=== PATIENT | female | born 1940 | race Caucasian/White ===

== ENCOUNTER 2018-09-15 08:51 | Inpatient (IN) ==
[2018-09-15] MEDS ORDERED: ONDANSETRON 4 MG/2 ML VIAL ONE ×2 (09:08→20:38)
[2018-09-15] MEDS ORDERED: ONDANSETRON 4 MG/2 ML VIAL IV STA (09:15)
[2018-09-15] MEDS ORDERED: SODIUM CHLORIDE 0.9% 1,000 ML IV STA (09:35)
[2018-09-15 09:48] LABS: Basophils # 0.1 10*3/uL (0.0-0.2); Eosinophils # 0.1 10*3/uL (0.0-0.87); Eosinophils % 0.6 % (0.00-10.9); Hematocrit 45.9 VOL% (35.7-47.0); Immature Granulocytes % 0.6 %; Immature Granulocytes Absolute 0.08 #; Lymphocytes # 1.5 10*3/uL (1.4-4.0); Lymphocytes % 10.6 % (21.3-54.2); Mean Corpuscular HGB Conc 30.5 GM/DL (32-36); Mean Corpuscular Hemoglobin 25 PG (27-34); Mean Corpuscular Volume 81.7 FL (87-102); Mean Platelet Volume 10.8 FL (9.6-12.0); Monocytes # 0.8 10*3/uL (0.11-0.8); Monocytes % 5.6 % (1.7-12.7); Neutrophils # 11.4 10*3/uL (1.4-7.4); Neutrophils % 81.6 % (38.7-73.9); Platelet Count 750 T/CUMM (130-400); Red Blood Count 5.62 MC/CUMM (3.8-5.5); Red Cell Distribution Width 15.9 % (9.3-17.3)
[2018-09-15 09:54] LABS: PT Patient Result 10.7 SECS; Partial Thromboplastin Time 29.4 SECS (0-40)
[2018-09-15 09:59] LABS: Alanine Aminotransferase 22 U/L (13-56); Albumin 3.5 G/DL (3.4-5.0); Alkaline Phosphatase 126 U/L (45-117); Aspartate Amino Transferase 30 U/L (0-37); Bilirubin,Total < 0.39 MG/DL (0.2-1.0); Blood Urea Nitrogen 20 MG/DL (7-18); Glucose 118 MG/DL (74-106); Osmolality,Calculated 282.4 MOS/KG (273-304); Sodium 140 MMOL/L (136-145); Total Protein 8.4 G/DL (6.4-8.3)
[2018-09-15 10:02] LABS: Troponin I 0.252 NG/ML (0.00-0.045)
[2018-09-15 10:04] LABS: Free T4 (Free Thyroxine) 1.02 NG/DL (0.76-1.46); Thyroid Stimulating Hormone 3.06 uIU/ml (0.358-3.74)
[2018-09-15 10:58] LABS: Apearance,Urine CLEAR (Clear); Bilirubin,Urine Negative (Negative); Blood, Urine Negative (Negative); Glucose,Urine (UA) Negative (Negative); Hyaline Casts,Urine 4 /LPF (0-3); Ketones,Urine Negative (Negative); Mucus,Urine Occasional /LPF (Occasional); Nitrite,Urine Negative (Negative); Protein,Urine 30 MG/DL; RBC,Urine <1 /HPF (0-4); Squamous Epithelial Cell,Urine Occasional /HPF (0-10); Urine Color Yellow (Yellow); Urine Specific Gravity 1.015 (1.001-1.035); WBC,Urine 1 /HPF (0-6)
[2018-09-15 11:44] LABS: Barbiturates Screen,Urine Positive (Negative); Benzodiazepines Screen,Urine Negative (Negative); Cannabinoid Screen,Urine Negative (Negative); Opiate Screen,Urine Negative (Negative); Phencyclidine Screen,Urine Negative (Negative)
[2018-09-15] MEDS ORDERED: ACETAMINOPHEN 325 MG TABLET PO PRN (13:25)
[2018-09-15] MEDS: SODIUM CHLORIDE 0.9% 1,000 ML IV SCH ×2 (13:44→21:58)
[2018-09-15] MEDS ORDERED: ALTEPLASE 2 MG VIAL INTRACATH ONE ×2 (18:58→19:01)
[2018-09-15] MEDS ORDERED: ALTEPLASE 6 MG in SODIUM CHLORIDE 0.9% 120 ML IV SCH ×2 (19:15→19:30)
[2018-09-15] MEDS ORDERED: HEPARIN/NACL 0.9% 2 UNITS/ML 500 ML IV ONE ×2 (19:21→19:46)
[2018-09-15] MEDS ORDERED: LIDOCAINE 1% 20 ML VIAL ONE (19:21)
[2018-09-15] MEDS ORDERED: MIDAZOLAM 2 MG/2 ML VIAL ONE (19:25)
[2018-09-15 19:35] LABS: Troponin I 0.604 NG/ML (0.00-0.045)
[2018-09-15] MEDS ORDERED: ONDANSETRON 4 MG/2 ML VIAL IV ONE (20:40)
[2018-09-15] MEDS ORDERED: oxyCODONE/ACETAMINOPHEN 5-325 MG TABLET PO PRN (20:50)
[2018-09-15] MEDS ORDERED: MORPHINE 4 MG/1 ML VIAL IV PRN (20:50)
[2018-09-15] MEDS ORDERED: PROPRANOLOL 10 MG TABLET PO SCH (21:00)
[2018-09-15] MEDS ORDERED: SODIUM CHLORIDE 0.9% 1,000 ML IV SCH ×2 (21:00)
[2018-09-15] MEDS ORDERED: HEPARIN DRIP 25,000 UNITS/500 ML PREMIX IV SCH ×2 (21:00)
[2018-09-15 21:26] LABS: PT Patient Result 10.9 SECS; Partial Thromboplastin Time 29.4 SECS (0-40)
[2018-09-15] MEDS ORDERED: NOREPINEPHRINE 8 MG in SODIUM CHLORIDE 0.9% 242 ML IV PRN (21:47)
[2018-09-15] MEDS: PRIMIDONE 50 MG TABLET PO SCH (21:57)
[2018-09-15] MEDS: DOCUSATE SODIUM 100 MG CAPSULE PO SCH (21:57)
[2018-09-15 22:03] LABS: Basophils # 0.1 10*3/uL (0.0-0.2); Basophils % 0.6 % (0.0-0.8); Eosinophils % 0.1 % (0.00-10.9); Hematocrit 40.1 VOL% (35.7-47.0); Hemoglobin 12.3 GM/DL (12.0-16.0); Immature Granulocytes % 0.5 %; Immature Granulocytes Absolute 0.08 #; Lymphocytes # 1.6 10*3/uL (1.4-4.0); Lymphocytes % 10.5 % (21.3-54.2); Mean Corpuscular HGB Conc 30.7 GM/DL (32-36); Mean Corpuscular Hemoglobin 25 PG (27-34); Mean Corpuscular Volume 80.5 FL (87-102); Mean Platelet Volume 10.7 FL (9.6-12.0); Monocytes # 0.9 10*3/uL (0.11-0.8); Neutrophils # 12.7 10*3/uL (1.4-7.4); Neutrophils % 82.3 % (38.7-73.9); Red Blood Count 4.98 MC/CUMM (3.8-5.5); Red Cell Distribution Width 15.9 % (9.3-17.3); White Blood Count 15.4 T/CUMM (4-12)
[2018-09-15] MEDS: cefTRIAXone 500 MG in SYRINGE 1 EACH IV SCH (22:04)
[2018-09-15 22:08] LABS: Platelet Count 584 T/CUMM (130-400)
[2018-09-15 23:55] LABS: Apearance,Urine CLEAR (Clear); Bilirubin,Urine Negative (Negative); Blood, Urine Negative (Negative); Glucose,Urine (UA) Negative (Negative); Ketones,Urine Negative (Negative); Mucus,Urine Occasional /LPF (Occasional); Nitrite,Urine Negative (Negative); Protein,Urine Negative; RBC,Urine 2 /HPF (0-4); Squamous Epithelial Cell,Urine Occasional /HPF (0-10); Urine Color Yellow (Yellow); Urine Specific Gravity > 1.060 (1.001-1.035); WBC,Urine 2 /HPF (0-6)
[2018-09-16 04:46] LABS: Basophils # 0.1 10*3/uL (0.0-0.2); Basophils % 0.6 % (0.0-0.8); Eosinophils % 0.1 % (0.00-10.9); Hematocrit 39.3 VOL% (35.7-47.0); Immature Granulocytes % 0.8 %; Immature Granulocytes Absolute 0.11 #; Lymphocytes % 15.7 % (21.3-54.2); Mean Corpuscular HGB Conc 30.5 GM/DL (32-36); Mean Corpuscular Hemoglobin 25 PG (27-34); Mean Corpuscular Volume 81.9 FL (87-102); Monocytes % 7.3 % (1.7-12.7); Neutrophils # 9.8 10*3/uL (1.4-7.4); Neutrophils % 75.5 % (38.7-73.9); Platelet Count 550 T/CUMM (130-400); Red Cell Distribution Width 15.9 % (9.3-17.3)
[2018-09-16 04:46] LABS: INR 1.1; PT Patient Result 11.2 SECS
[2018-09-16 05:37] LABS: Albumin 2.7 G/DL (3.4-5.0); Bilirubin,Total 0.4 MG/DL (0.2-1.0); Calcium 7.8 MG/DL (8.5-10.1); Osmolality,Calculated 294.4 MOS/KG (273-304); Potassium 4.1 MMOL/L (3.5-5.1); Total Protein 6.3 G/DL (6.4-8.3)
[2018-09-16] MEDS: SODIUM CHLORIDE 0.9% 1,000 ML IV SCH ×5 (06:05→22:23)
[2018-09-16] MEDS: LEVOTHYROXINE 75 MCG TABLET PO SCH (06:05)
[2018-09-16 07:16] LABS: Troponin I 0.548 NG/ML (0.00-0.045)
[2018-09-16 07:18] LABS: Troponin I 0.406 NG/ML (0.00-0.045)
[2018-09-16 09:08] LABS: Partial Thromboplastin Time 48.3 SECS (0-40)
[2018-09-16] MEDS: DOCUSATE SODIUM 100 MG CAPSULE PO SCH ×2 (09:28→21:01)
[2018-09-16] MEDS: PANTOPRAZOLE 40 MG TABLET PO SCH (09:28)
[2018-09-16] MEDS: APIXABAN 5 MG TABLET PO SCH ×2 (15:10→21:02)
[2018-09-16] MEDS ORDERED: DIAZEPAM 5 MG TABLET PO ONE (15:12)
[2018-09-16] MEDS: PRIMIDONE 50 MG TABLET PO SCH (21:02)
[2018-09-16] MEDS: cefTRIAXone 500 MG in SYRINGE 1 EACH IV SCH (21:04)
[2018-09-17] MEDS: SODIUM CHLORIDE 0.9% 1,000 ML IV SCH ×5 (01:48→22:25)
[2018-09-17 05:39] LABS: Basophils # 0.1 10*3/uL (0.0-0.2)
[2018-09-17 05:44] LABS: Eosinophils # 0.1 10*3/uL (0.0-0.87); Hematocrit 36.8 VOL% (35.7-47.0); Hemoglobin 11.3 GM/DL (12.0-16.0); Immature Granulocytes % 0.7 %; Immature Granulocytes Absolute 0.08 #; Mean Corpuscular HGB Conc 30.7 GM/DL (32-36); Mean Corpuscular Hemoglobin 25 PG (27-34); Mean Corpuscular Volume 82.3 FL (87-102); Mean Platelet Volume 10.8 FL (9.6-12.0); Monocytes % 8.3 % (1.7-12.7); Neutrophils # 8.4 10*3/uL (1.4-7.4); Platelet Count 452 T/CUMM (130-400); Red Blood Count 4.47 MC/CUMM (3.8-5.5); Red Cell Distribution Width 16.3 % (9.3-17.3); White Blood Count 11.6 T/CUMM (4-12)
[2018-09-17 05:52] LABS: Calcium 7.9 MG/DL (8.5-10.1); Osmolality,Calculated 285.8 MOS/KG (273-304); Potassium 3.9 MMOL/L (3.5-5.1)
[2018-09-17] MEDS: LEVOTHYROXINE 75 MCG TABLET PO SCH (06:53)
[2018-09-17] MEDS: APIXABAN 5 MG TABLET PO SCH ×2 (09:15→21:49)
[2018-09-17] MEDS: DOCUSATE SODIUM 100 MG CAPSULE PO SCH ×2 (09:15→21:49)
[2018-09-17] MEDS: PANTOPRAZOLE 40 MG TABLET PO SCH (09:15)
[2018-09-17] MEDS: CHOLECALCIFEROL 1,000 UNIT TABLET PO SCH (09:32)
[2018-09-17] MEDS: SIMVASTATIN 40 MG TABLET PO SCH (21:49)
[2018-09-17] MEDS: PRIMIDONE 50 MG TABLET PO SCH (21:49)
[2018-09-17] MEDS: cefTRIAXone 500 MG in SYRINGE 1 EACH IV SCH (22:23)
[2018-09-18 06:07] LABS: Basophils # 0.1 10*3/uL (0.0-0.2); Basophils % 1.2 % (0.0-0.8); Eosinophils # 0.2 10*3/uL (0.0-0.87); Eosinophils % 1.9 % (0.00-10.9); Lymphocytes # 2.1 10*3/uL (1.4-4.0); Lymphocytes % 20.4 % (21.3-54.2); Mean Corpuscular HGB Conc 29.4 GM/DL (32-36); Mean Corpuscular Hemoglobin 24 PG (27-34); Mean Corpuscular Volume 82.5 FL (87-102); Mean Platelet Volume 11.1 FL (9.6-12.0); Monocytes # 0.9 10*3/uL (0.11-0.8); Monocytes % 8.2 % (1.7-12.7); Neutrophils % 67.3 % (38.7-73.9); Platelet Count 418 T/CUMM (130-400); Red Blood Count 4.91 MC/CUMM (3.8-5.5); Red Cell Distribution Width 16.5 % (9.3-17.3); White Blood Count 10.4 T/CUMM (4-12)
[2018-09-18] MEDS: LEVOTHYROXINE 75 MCG TABLET PO SCH (06:38)
[2018-09-18 06:43] LABS: Hematocrit 39.6 VOL% (35.7-47.0); Hemoglobin 12.1 GM/DL (12.0-16.0)
[2018-09-18] MEDS: CHOLECALCIFEROL 1,000 UNIT TABLET PO SCH (08:49)
[2018-09-18] MEDS: PANTOPRAZOLE 40 MG TABLET PO SCH (08:50)
[2018-09-18] MEDS: DOCUSATE SODIUM 100 MG CAPSULE PO SCH ×2 (08:50→20:47)
[2018-09-18] MEDS: APIXABAN 5 MG TABLET PO SCH ×2 (08:50→20:47)
[2018-09-18 09:36] LABS: Calcium 8.2 MG/DL (8.5-10.1); Potassium 3.7 MMOL/L (3.5-5.1)
[2018-09-18] MEDS: PRIMIDONE 50 MG TABLET PO SCH (20:47)
[2018-09-18] MEDS: VENLAFAXINE XR 75 MG CAPSULE PO SCH (20:47)
[2018-09-18] MEDS: SIMVASTATIN 40 MG TABLET PO SCH (20:47)
[2018-09-18] MEDS: SODIUM CHLORIDE 0.9% 1,000 ML IV SCH ×2 (20:51)
[2018-09-19] MEDS: SODIUM CHLORIDE 0.9% 1,000 ML IV SCH ×3 (03:40→07:06)
[2018-09-19 05:39] LABS: Basophils # 0.1 10*3/uL (0.0-0.2); Basophils % 1.1 % (0.0-0.8); Eosinophils # 0.2 10*3/uL (0.0-0.87); Hematocrit 37.5 VOL% (35.7-47.0); Hemoglobin 11.4 GM/DL (12.0-16.0); Immature Granulocytes % 1.2 %; Immature Granulocytes Absolute 0.14 #; Lymphocytes # 1.5 10*3/uL (1.4-4.0); Mean Corpuscular HGB Conc 30.4 GM/DL (32-36); Mean Corpuscular Hemoglobin 24 PG (27-34); Mean Platelet Volume 11.5 FL (9.6-12.0); Monocytes # 0.8 10*3/uL (0.11-0.8); Neutrophils # 8.8 10*3/uL (1.4-7.4); Neutrophils % 75.7 % (38.7-73.9); Platelet Count 399 T/CUMM (130-400); Red Blood Count 4.69 MC/CUMM (3.8-5.5); Red Cell Distribution Width 16.9 % (9.3-17.3); White Blood Count 11.6 T/CUMM (4-12)
[2018-09-19 06:15] LABS: Albumin 2.5 G/DL (3.4-5.0); Bilirubin,Total 0.4 MG/DL (0.2-1.0); Calcium 8.3 MG/DL (8.5-10.1); Osmolality,Calculated 284.8 MOS/KG (273-304); Potassium 3.5 MMOL/L (3.5-5.1); Total Protein 6.2 G/DL (6.4-8.3)
[2018-09-19] MEDS: LEVOTHYROXINE 75 MCG TABLET PO SCH (06:38)
[2018-09-19] MEDS: CHOLECALCIFEROL 1,000 UNIT TABLET PO SCH (08:39)
[2018-09-19] MEDS: DOCUSATE SODIUM 100 MG CAPSULE PO SCH ×2 (08:39→20:28)
[2018-09-19] MEDS: PANTOPRAZOLE 40 MG TABLET PO SCH (08:40)
[2018-09-19] MEDS: APIXABAN 5 MG TABLET PO SCH ×2 (08:40→20:28)
[2018-09-19] MEDS ORDERED: TUBERCULIN SKIN TEST 0.1 ML SYRINGE INTRADERM ONE (09:14)
[2018-09-19] MEDS ORDERED: FUROSEMIDE 20 MG/2 ML VIAL IV ONE (11:52)
[2018-09-19] MEDS: ONDANSETRON 4 MG/2 ML VIAL IV PRN (14:37)
[2018-09-19] MEDS: VENLAFAXINE XR 75 MG CAPSULE PO SCH (20:27)
[2018-09-19] MEDS: SIMVASTATIN 40 MG TABLET PO SCH (20:27)
[2018-09-19] MEDS: PRIMIDONE 50 MG TABLET PO SCH (20:28)
[2018-09-20 05:01] LABS: Basophils # 0.1 10*3/uL (0.0-0.2); Basophils % 1.1 % (0.0-0.8); Eosinophils # 0.1 10*3/uL (0.0-0.87); Eosinophils % 0.8 % (0.00-10.9); Hematocrit 39.9 VOL% (35.7-47.0); Hemoglobin 12.1 GM/DL (12.0-16.0); Immature Granulocytes % 1.6 %; Immature Granulocytes Absolute 0.19 #; Lymphocytes # 2.1 10*3/uL (1.4-4.0); Lymphocytes % 17.1 % (21.3-54.2); Mean Corpuscular HGB Conc 30.3 GM/DL (32-36); Mean Corpuscular Hemoglobin 24 PG (27-34); Mean Corpuscular Volume 80.4 FL (87-102); Mean Platelet Volume 11.6 FL (9.6-12.0); Monocytes # 0.8 10*3/uL (0.11-0.8); Monocytes % 6.4 % (1.7-12.7); Neutrophils # 8.9 10*3/uL (1.4-7.4); Platelet Count 416 T/CUMM (130-400); Red Blood Count 4.96 MC/CUMM (3.8-5.5); Red Cell Distribution Width 17.1 % (9.3-17.3); White Blood Count 12.3 T/CUMM (4-12)
[2018-09-20 05:20] LABS: Calcium 8.8 MG/DL (8.5-10.1); Osmolality,Calculated 288.8 MOS/KG (273-304); Potassium 4.3 MMOL/L (3.5-5.1)
[2018-09-20] MEDS: LEVOTHYROXINE 75 MCG TABLET PO SCH (06:25)
[2018-09-20] MEDS: FUROSEMIDE 20 MG/2 ML VIAL IV SCH (08:31)
[2018-09-20] MEDS: PANTOPRAZOLE 40 MG TABLET PO SCH (09:46)
[2018-09-20] MEDS: CHOLECALCIFEROL 1,000 UNIT TABLET PO SCH (09:46)
[2018-09-20] MEDS: DOCUSATE SODIUM 100 MG CAPSULE PO SCH ×2 (09:46→20:53)
[2018-09-20] MEDS: APIXABAN 5 MG TABLET PO SCH ×2 (09:47→20:52)
[2018-09-20] MEDS: VENLAFAXINE XR 75 MG CAPSULE PO SCH (20:52)
[2018-09-20] MEDS: PRIMIDONE 50 MG TABLET PO SCH (20:53)
[2018-09-20] MEDS: SIMVASTATIN 40 MG TABLET PO SCH (20:53)
[2018-09-21 05:34] LABS: Basophils # 0.1 10*3/uL (0.0-0.2); Basophils % 1.1 % (0.0-0.8); Eosinophils # 0.2 10*3/uL (0.0-0.87); Eosinophils % 1.5 % (0.00-10.9); Hematocrit 38.1 VOL% (35.7-47.0); Hemoglobin 11.4 GM/DL (12.0-16.0); Immature Granulocytes % 1.7 %; Immature Granulocytes Absolute 0.22 #; Lymphocytes # 2.7 10*3/uL (1.4-4.0); Lymphocytes % 21.5 % (21.3-54.2); Mean Corpuscular HGB Conc 29.9 GM/DL (32-36); Mean Corpuscular Hemoglobin 24 PG (27-34); Mean Corpuscular Volume 78.9 FL (87-102); Mean Platelet Volume 11.3 FL (9.6-12.0); Monocytes # 0.9 10*3/uL (0.11-0.8); Monocytes % 7.2 % (1.7-12.7); NRBC # 0.04 10*3/uL; Neutrophils # 8.5 10*3/uL (1.4-7.4); Platelet Count 341 T/CUMM (130-400); Red Blood Count 4.83 MC/CUMM (3.8-5.5); Red Cell Distribution Width 16.8 % (9.3-17.3); White Blood Count 12.8 T/CUMM (4-12)
[2018-09-21 06:00] LABS: Calcium 8.5 MG/DL (8.5-10.1); Potassium 3.4 MMOL/L (3.5-5.1)
[2018-09-21] MEDS: LEVOTHYROXINE 75 MCG TABLET PO SCH (06:08)
[2018-09-21] MEDS: FUROSEMIDE 20 MG/2 ML VIAL IV SCH (10:19)
[2018-09-21] MEDS: APIXABAN 5 MG TABLET PO SCH ×2 (10:20→20:58)
[2018-09-21] MEDS: CHOLECALCIFEROL 1,000 UNIT TABLET PO SCH (10:20)
[2018-09-21] MEDS: DOCUSATE SODIUM 100 MG CAPSULE PO SCH ×2 (10:20→20:58)
[2018-09-21] MEDS: PANTOPRAZOLE 40 MG TABLET PO SCH (10:20)
[2018-09-21] MEDS: POTASSIUM CHLORIDE 20 MEQ TABLET PO SCH ×2 (10:45→20:58)
[2018-09-21] MEDS: VENLAFAXINE XR 75 MG CAPSULE PO SCH (20:57)
[2018-09-21] MEDS: PRIMIDONE 50 MG TABLET PO SCH (20:58)
[2018-09-21] MEDS: SIMVASTATIN 40 MG TABLET PO SCH (20:58)
[2018-09-22] MEDS: LEVOTHYROXINE 75 MCG TABLET PO SCH (06:17)
[2018-09-22] MEDS: CHOLECALCIFEROL 1,000 UNIT TABLET PO SCH (08:56)
[2018-09-22] MEDS: FUROSEMIDE 40 MG/4 ML VIAL IV SCH (08:57)
[2018-09-22] MEDS: POTASSIUM CHLORIDE 20 MEQ TABLET PO SCH ×2 (08:57→21:08)
[2018-09-22] MEDS: APIXABAN 5 MG TABLET PO SCH ×2 (08:57→21:04)
[2018-09-22] MEDS: DOCUSATE SODIUM 100 MG CAPSULE PO SCH ×2 (08:57→21:04)
[2018-09-22] MEDS: PANTOPRAZOLE 40 MG TABLET PO SCH (08:57)
[2018-09-22 09:06] LABS: Calcium 8.4 MG/DL (8.5-10.1); Osmolality,Calculated 284.1 MOS/KG (273-304); Potassium 3.6 MMOL/L (3.5-5.1)
[2018-09-22] MEDS: VENLAFAXINE XR 75 MG CAPSULE PO SCH (21:03)
[2018-09-22] MEDS: SIMVASTATIN 40 MG TABLET PO SCH (21:04)
[2018-09-22] MEDS: PRIMIDONE 50 MG TABLET PO SCH (21:05)
[2018-09-23] MEDS: LEVOTHYROXINE 75 MCG TABLET PO SCH (06:05)
[2018-09-23] MEDS: PANTOPRAZOLE 40 MG TABLET PO SCH (08:50)
[2018-09-23] MEDS: DOCUSATE SODIUM 100 MG CAPSULE PO SCH ×2 (08:50→20:39)
[2018-09-23] MEDS: FUROSEMIDE 40 MG/4 ML VIAL IV SCH (08:51)
[2018-09-23] MEDS: POTASSIUM CHLORIDE 20 MEQ TABLET PO SCH ×2 (08:51→20:38)
[2018-09-23] MEDS: APIXABAN 5 MG TABLET PO SCH ×2 (08:51→20:39)
[2018-09-23] MEDS: CHOLECALCIFEROL 1,000 UNIT TABLET PO SCH (08:51)
[2018-09-23] MEDS: PRIMIDONE 50 MG TABLET PO SCH (20:39)
[2018-09-23] MEDS: VENLAFAXINE XR 75 MG CAPSULE PO SCH (20:39)
[2018-09-23] MEDS: SIMVASTATIN 40 MG TABLET PO SCH (20:40)
[2018-09-24 05:40] LABS: Basophils # 0.1 10*3/uL (0.0-0.2); Basophils % 1.4 % (0.0-0.8); Eosinophils # 0.2 10*3/uL (0.0-0.87); Eosinophils % 2.3 % (0.00-10.9); Hemoglobin 11.9 GM/DL (12.0-16.0); Immature Granulocytes % 1.4 %; Immature Granulocytes Absolute 0.14 #; Lymphocytes # 1.8 10*3/uL (1.4-4.0); Mean Corpuscular HGB Conc 31.3 GM/DL (32-36); Mean Corpuscular Hemoglobin 25 PG (27-34); Mean Platelet Volume 12.5 FL (9.6-12.0); Monocytes # 0.7 10*3/uL (0.11-0.8); Monocytes % 6.9 % (1.7-12.7); Neutrophils # 6.8 10*3/uL (1.4-7.4); Platelet Count 283 T/CUMM (130-400); Red Blood Count 4.81 MC/CUMM (3.8-5.5); Red Cell Distribution Width 16.1 % (9.3-17.3); White Blood Count 9.7 T/CUMM (4-12)
[2018-09-24 06:08] LABS: Calcium 8.5 MG/DL (8.5-10.1); Osmolality,Calculated 279.5 MOS/KG (273-304); Potassium 4.1 MMOL/L (3.5-5.1)
[2018-09-24] MEDS: LEVOTHYROXINE 75 MCG TABLET PO SCH (06:12)
[2018-09-24] MEDS: APIXABAN 5 MG TABLET PO SCH ×2 (08:42→20:21)
[2018-09-24] MEDS: DOCUSATE SODIUM 100 MG CAPSULE PO SCH ×2 (08:42→20:21)
[2018-09-24] MEDS: PANTOPRAZOLE 40 MG TABLET PO SCH (08:42)
[2018-09-24] MEDS: POTASSIUM CHLORIDE 20 MEQ TABLET PO SCH ×2 (08:43→20:21)
[2018-09-24] MEDS: FUROSEMIDE 40 MG/4 ML VIAL IV SCH (08:43)
[2018-09-24] MEDS: CHOLECALCIFEROL 1,000 UNIT TABLET PO SCH (08:43)
[2018-09-24] MEDS: SIMVASTATIN 40 MG TABLET PO SCH (20:21)
[2018-09-24] MEDS: VENLAFAXINE XR 75 MG CAPSULE PO SCH (20:21)
[2018-09-24] MEDS: PRIMIDONE 50 MG TABLET PO SCH (20:21)
[2018-09-24] MEDS: ONDANSETRON 4 MG/2 ML VIAL IV PRN (23:00)
[2018-09-25 05:43] LABS: Basophils # 0.1 10*3/uL (0.0-0.2); Basophils % 1.3 % (0.0-0.8); Eosinophils # 0.3 10*3/uL (0.0-0.87); Eosinophils % 3.1 % (0.00-10.9); Hematocrit 39.2 VOL% (35.7-47.0); Hemoglobin 11.9 GM/DL (12.0-16.0); Immature Granulocytes % 1.2 %; Immature Granulocytes Absolute 0.11 #; Lymphocytes # 1.8 10*3/uL (1.4-4.0); Lymphocytes % 19.5 % (21.3-54.2); Mean Corpuscular HGB Conc 30.4 GM/DL (32-36); Mean Corpuscular Hemoglobin 25 PG (27-34); Mean Corpuscular Volume 80.8 FL (87-102); Mean Platelet Volume 12.3 FL (9.6-12.0); Monocytes # 0.8 10*3/uL (0.11-0.8); Monocytes % 7.9 % (1.7-12.7); Neutrophils # 6.3 10*3/uL (1.4-7.4); Platelet Count 314 T/CUMM (130-400); Red Blood Count 4.85 MC/CUMM (3.8-5.5); Red Cell Distribution Width 15.9 % (9.3-17.3); White Blood Count 9.5 T/CUMM (4-12)
[2018-09-25 06:12] LABS: Albumin 2.5 G/DL (3.4-5.0); Bilirubin,Total 0.5 MG/DL (0.2-1.0); Calcium 8.9 MG/DL (8.5-10.1); Osmolality,Calculated 282.5 MOS/KG (273-304); Total Protein 6.9 G/DL (6.4-8.3)
[2018-09-25] MEDS: LEVOTHYROXINE 75 MCG TABLET PO SCH (06:32)
[2018-09-25] MEDS ORDERED: FUROSEMIDE 40 MG TABLET PO SCH (09:00)
[2018-09-25] MEDS: PANTOPRAZOLE 40 MG TABLET PO SCH (10:16)
[2018-09-25] MEDS: CHOLECALCIFEROL 1,000 UNIT TABLET PO SCH (10:16)
[2018-09-25] MEDS: APIXABAN 5 MG TABLET PO SCH ×2 (10:16→20:14)
[2018-09-25] MEDS: DOCUSATE SODIUM 100 MG CAPSULE PO SCH ×2 (10:16→20:15)
[2018-09-25] MEDS: POTASSIUM CHLORIDE 20 MEQ TABLET PO SCH (10:16)
[2018-09-25] MEDS: SODIUM CHLORIDE 0.9% 1,000 ML IV SCH ×2 (16:59→23:31)
[2018-09-25] MEDS: VENLAFAXINE XR 75 MG CAPSULE PO SCH (20:14)
[2018-09-25] MEDS: PRIMIDONE 50 MG TABLET PO SCH (20:14)
[2018-09-25] MEDS: SIMVASTATIN 40 MG TABLET PO SCH (20:15)
[2018-09-26 06:00] LABS: Basophils # 0.1 10*3/uL (0.0-0.2); Basophils % 1.4 % (0.0-0.8); Eosinophils # 0.3 10*3/uL (0.0-0.87); Eosinophils % 3.8 % (0.00-10.9); Hematocrit 36.7 VOL% (35.7-47.0); Hemoglobin 10.9 GM/DL (12.0-16.0); Immature Granulocytes % 0.9 %; Immature Granulocytes Absolute 0.07 #; Lymphocytes # 1.6 10*3/uL (1.4-4.0); Lymphocytes % 20.1 % (21.3-54.2); Mean Corpuscular HGB Conc 29.7 GM/DL (32-36); Mean Corpuscular Hemoglobin 24 PG (27-34); Mean Corpuscular Volume 80.8 FL (87-102); Monocytes # 0.6 10*3/uL (0.11-0.8); Monocytes % 7.5 % (1.7-12.7); Neutrophils # 5.2 10*3/uL (1.4-7.4); Neutrophils % 66.3 % (38.7-73.9); Platelet Count 351 T/CUMM (130-400); Red Blood Count 4.54 MC/CUMM (3.8-5.5); Red Cell Distribution Width 15.9 % (9.3-17.3); White Blood Count 7.9 T/CUMM (4-12)
[2018-09-26 06:26] LABS: Alanine Aminotransferase 28 U/L (13-56); Albumin 2.4 G/DL (3.4-5.0); Alkaline Phosphatase 103 U/L (45-117); Aspartate Amino Transferase 34 U/L (0-37); Bilirubin,Total < 0.39 MG/DL (0.2-1.0); Blood Urea Nitrogen 27 MG/DL (7-18); Calcium 8.3 MG/DL (8.5-10.1); Glucose 98 MG/DL (74-106); Osmolality,Calculated 281.5 MOS/KG (273-304); Potassium 4.4 MMOL/L (3.5-5.1); Sodium 139 MMOL/L (136-145); Total Protein 6.6 G/DL (6.4-8.3)
[2018-09-26] MEDS: LEVOTHYROXINE 75 MCG TABLET PO SCH (07:03)
[2018-09-26] MEDS: SODIUM CHLORIDE 0.9% 1,000 ML IV SCH (09:19)
[2018-09-26] MEDS: APIXABAN 5 MG TABLET PO SCH ×2 (09:20→20:52)
[2018-09-26] MEDS: DOCUSATE SODIUM 100 MG CAPSULE PO SCH ×2 (09:20→20:52)
[2018-09-26] MEDS: PANTOPRAZOLE 40 MG TABLET PO SCH (09:20)
[2018-09-26] MEDS: FUROSEMIDE 20 MG TABLET PO SCH (09:20)
[2018-09-26] MEDS: CHOLECALCIFEROL 1,000 UNIT TABLET PO SCH (09:20)
[2018-09-26] MEDS: PRIMIDONE 50 MG TABLET PO SCH (20:52)
[2018-09-26] MEDS: VENLAFAXINE XR 75 MG CAPSULE PO SCH (20:52)
[2018-09-26] MEDS: SIMVASTATIN 40 MG TABLET PO SCH (20:52)
[2018-09-26] MEDS ORDERED: MAGNESIUM HYDROXIDE SUSP 30 ML UDCUP PO PRN (22:20)
[2018-09-27 05:50] LABS: Basophils # 0.1 10*3/uL (0.0-0.2); Eosinophils # 0.3 10*3/uL (0.0-0.87); Eosinophils % 4.2 % (0.00-10.9); Hematocrit 36.7 VOL% (35.7-47.0); Immature Granulocytes % 0.9 %; Immature Granulocytes Absolute 0.06 #; Lymphocytes # 1.5 10*3/uL (1.4-4.0); Lymphocytes % 22.5 % (21.3-54.2); Mean Corpuscular Hemoglobin 24 PG (27-34); Mean Corpuscular Volume 80.7 FL (87-102); Mean Platelet Volume 11.8 FL (9.6-12.0); Monocytes # 0.5 10*3/uL (0.11-0.8); Monocytes % 7.6 % (1.7-12.7); Neutrophils # 4.2 10*3/uL (1.4-7.4); Neutrophils % 62.8 % (38.7-73.9); Platelet Count 382 T/CUMM (130-400); Red Blood Count 4.55 MC/CUMM (3.8-5.5); Red Cell Distribution Width 15.9 % (9.3-17.3); White Blood Count 6.6 T/CUMM (4-12)
[2018-09-27] MEDS: LEVOTHYROXINE 75 MCG TABLET PO SCH (06:01)
[2018-09-27] MEDS: DOCUSATE SODIUM 100 MG CAPSULE PO SCH (08:48)
[2018-09-27] MEDS: PANTOPRAZOLE 40 MG TABLET PO SCH (08:48)
[2018-09-27] MEDS: APIXABAN 5 MG TABLET PO SCH (08:48)
[2018-09-27] MEDS: CHOLECALCIFEROL 1,000 UNIT TABLET PO SCH (08:48)
[2018-09-27] MEDS: FUROSEMIDE 20 MG TABLET PO SCH (08:48)
[2018-09-27 12:15] VITALS: BP 110/76
== END 2018-09-27 14:02 | DRG 166 ==
LOC: EDUNIT# → EDBD → N.ED 08:51 → N.EDINP 08:51 → N.TELEN 13:16 → N.CC 20:49 → SUATTDRO 20:50 → N.5E 09-17 10:49
PROVIDERS: ADMIT Family Medicine; ATTEND Family Medicine

== ENCOUNTER 2018-11-10 15:10 | Inpatient (IN) ==
[2018-11-10 16:28] LABS: Alanine Aminotransferase 23 U/L (13-56); Albumin 3.8 G/DL (3.4-5.0); Alkaline Phosphatase 115 U/L (45-117); Aspartate Amino Transferase 30 U/L (0-37); Bilirubin,Total < 0.39 MG/DL (0.2-1.0); Blood Urea Nitrogen 23 MG/DL (7-18); Glucose 97 MG/DL (74-106); Osmolality,Calculated 282.4 MOS/KG (273-304); Potassium 4.1 MMOL/L (3.5-5.1); Sodium 140 MMOL/L (136-145); Total Protein 8.4 G/DL (6.4-8.3)
[2018-11-10] MEDS ORDERED: ONDANSETRON 4 MG/2 ML VIAL IV PRN (16:32)
[2018-11-10] MEDS ORDERED: LABETALOL 20 MG/4 ML SYRINGE IV PRN (16:34)
[2018-11-10 16:50] LABS: Eosinophils # 0.1 10*3/uL (0.0-0.87); Mean Corpuscular Hemoglobin 24 PG (27-34); Red Blood Count 5.74 MC/CUMM (3.8-5.5)
[2018-11-10 16:57] LABS: PT Patient Result 10.8 SECS; Partial Thromboplastin Time 29.4 SECS (0-40)
[2018-11-10 17:03] LABS: Basophils # 0.2 10*3/uL (0.0-0.2); Basophils % 1.6 % (0.0-0.8); Eosinophils % 1.3 % (0.00-10.9); Hematocrit 45.5 VOL% (35.7-47.0); Immature Granulocytes % 0.5 %; Immature Granulocytes Absolute 0.05 #; Lymphocytes # 2.1 10*3/uL (1.4-4.0); Lymphocytes % 19.9 % (21.3-54.2); Mean Corpuscular HGB Conc 30.3 GM/DL (32-36); Mean Corpuscular Volume 79.3 FL (87-102); Mean Platelet Volume 11.1 FL (9.6-12.0); Monocytes # 0.8 10*3/uL (0.11-0.8); Monocytes % 7.5 % (1.7-12.7); Neutrophils # 7.2 10*3/uL (1.4-7.4); Neutrophils % 69.2 % (38.7-73.9); Platelet Count 650 T/CUMM (130-400); Red Cell Distribution Width 18.2 % (9.3-17.3); White Blood Count 10.3 T/CUMM (4-12)
[2018-11-10 17:05] LABS: Hemoglobin 13.8 GM/DL (12.0-16.0)
[2018-11-10] MEDS: SODIUM CHLORIDE 0.45% 1,000 ML IV SCH (18:22)
[2018-11-10] MEDS: APIXABAN 5 MG TABLET PO SCH (20:55)
[2018-11-10 23:19] LABS: Apearance,Urine CLEAR (Clear); Bilirubin,Urine Negative (Negative); Blood, Urine Negative (Negative); Glucose,Urine (UA) Negative (Negative); Hyaline Casts,Urine 13 /LPF (0-3); Ketones,Urine Negative (Negative); Mucus,Urine Occasional /LPF (Occasional); Nitrite,Urine Negative (Negative); Protein,Urine Negative; RBC,Urine 3 /HPF (0-4); Squamous Epithelial Cell,Urine Occasional /HPF (0-10); Urine Color Yellow (Yellow); Urine Specific Gravity 1.015 (1.001-1.035); Urine Urobilinogen < 2.0 EU/DL (0.2-1.0); WBC,Urine 1 /HPF (0-6)
[2018-11-10 23:45] LABS: Barbiturates Screen,Urine Positive (Negative); Benzodiazepines Screen,Urine Negative (Negative); Cannabinoid Screen,Urine Negative (Negative); Opiate Screen,Urine Negative (Negative); Phencyclidine Screen,Urine Negative (Negative)
[2018-11-11] MEDS: SODIUM CHLORIDE 0.45% 1,000 ML IV SCH ×4 (02:25→21:00)
[2018-11-11 04:59] LABS: Risk Ratio 4.56; VLDL CHOLESTEROL 41.2 MG/DL
[2018-11-11 05:07] LABS: Free T4 (Free Thyroxine) 0.76 NG/DL (0.76-1.46); Thyroid Stimulating Hormone 3.34 uIU/ml (0.358-3.74)
[2018-11-11] MEDS: LEVOTHYROXINE 75 MCG TABLET PO SCH (05:57)
[2018-11-11] MEDS: APIXABAN 5 MG TABLET PO SCH ×2 (08:35→21:00)
[2018-11-11] MEDS: CHOLECALCIFEROL 1,000 UNIT TABLET PO SCH (08:35)
[2018-11-11] MEDS: ASPIRIN EC 81 MG TABLET PO SCH (08:36)
[2018-11-11] MEDS: PANTOPRAZOLE 40 MG VIAL IV SCH (08:36)
[2018-11-11] MEDS ORDERED: NON-FORMULARY MEDICATION (Cholecalciferol (Vitamin D3) [Vitamin D3] 1,000 UNIT) PO SCH (09:00)
[2018-11-11] MEDS: ACETAMINOPHEN 325 MG TABLET PO PRN ×2 (12:28→23:07)
[2018-11-11] MEDS ORDERED: SIMVASTATIN 40 MG TABLET PO SCH (21:00)
[2018-11-11] MEDS ORDERED: VENLAFAXINE XR 75 MG CAPSULE PO SCH (21:00)
[2018-11-11] MEDS ORDERED: PRIMIDONE 50 MG TABLET PO SCH (21:00)
[2018-11-12] MEDS: SODIUM CHLORIDE 0.45% 1,000 ML IV SCH (05:04)
[2018-11-12] MEDS: LEVOTHYROXINE 75 MCG TABLET PO SCH (05:05)
[2018-11-12 05:22] LABS: Calcium 8.4 MG/DL (8.5-10.1); Osmolality,Calculated 283.3 MOS/KG (273-304); Potassium 3.6 MMOL/L (3.5-5.1)
[2018-11-12 05:39] LABS: Basophils # 0.2 10*3/uL (0.0-0.2); Basophils % 2.1 % (0.0-0.8); Eosinophils # 0.2 10*3/uL (0.0-0.87); Eosinophils % 3.4 % (0.00-10.9); Hematocrit 39.7 VOL% (35.7-47.0); Immature Granulocytes % 0.3 %; Immature Granulocytes Absolute 0.02 #; Lymphocytes # 2.1 10*3/uL (1.4-4.0); Mean Corpuscular HGB Conc 30.2 GM/DL (32-36); Mean Corpuscular Hemoglobin 24 PG (27-34); Mean Corpuscular Volume 79.2 FL (87-102); Mean Platelet Volume 10.9 FL (9.6-12.0); Monocytes # 0.6 10*3/uL (0.11-0.8); Neutrophils # 4.1 10*3/uL (1.4-7.4); Neutrophils % 57.2 % (38.7-73.9); Platelet Count 562 T/CUMM (130-400); Red Blood Count 5.01 MC/CUMM (3.8-5.5); Red Cell Distribution Width 17.7 % (9.3-17.3); White Blood Count 7.2 T/CUMM (4-12)
[2018-11-12 07:56] VITALS: BP 132/74
[2018-11-12] MEDS: PANTOPRAZOLE 40 MG VIAL IV SCH (08:32)
[2018-11-12] MEDS: ASPIRIN EC 81 MG TABLET PO SCH (08:33)
[2018-11-12] MEDS: CHOLECALCIFEROL 1,000 UNIT TABLET PO SCH (08:33)
[2018-11-12] MEDS: APIXABAN 5 MG TABLET PO SCH (08:33)
[2018-11-12] MEDS ORDERED: FUROSEMIDE 20 MG TABLET PO SCH (09:00)
== END 2018-11-12 13:45 | disposition home health service (06) | DRG 69 ==
LOC: N.ED 15:10 → N.4E 16:32
PROVIDERS: ADMIT Family Medicine; ATTEND Family Medicine

== ENCOUNTER 2021-01-03 16:23 | Inpatient (IN) ==
[2021-01-03] MEDS ORDERED: ONDANSETRON 4 MG/2 ML VIAL IV ONE (16:53)
[2021-01-03] MEDS ORDERED: MORPHINE 4 MG/1 ML VIAL IV STA (16:53)
[2021-01-03] MEDS ORDERED: ACETAMINOPHEN 325 MG TABLET PO PRN (18:49)
[2021-01-03 18:52] LABS: Basophils # 0.1 10*3/uL (0.0-0.2); Eosinophils # 0.1 10*3/uL (0.0-0.87); Eosinophils % 0.5 % (0.00-10.9); Hematocrit 37.9 VOL% (35.7-47.0); Hemoglobin 12.2 GM/DL (12.0-16.0); Immature Granulocytes % 0.6 %; Immature Granulocytes Absolute 0.07 #; Lymphocytes # 1.4 10*3/uL (1.4-4.0); Lymphocytes % 11.7 % (21.3-54.2); Mean Corpuscular HGB Conc 32.2 GM/DL (32-36); Mean Corpuscular Volume 94.3 FL (87-102); Mean Platelet Volume 10.7 FL (9.6-12.0); Monocytes % 5.2 % (1.7-12.7); Platelet Count 499 T/CUMM (130-400); Red Blood Count 4.02 MC/CUMM (3.8-5.5); Red Cell Distribution Width 22.8 % (9.3-17.3); White Blood Count 12.3 T/CUMM (4-12)
[2021-01-03 19:01] LABS: INR 1.1; PT Patient Result 11.4 SECS (9.8-11.9)
[2021-01-03 19:43] LABS: Alanine Aminotransferase 27 U/L (13-56); Albumin 3.6 G/DL (3.4-5.0); Alkaline Phosphatase 98 U/L (45-117); Aspartate Amino Transferase 32 U/L (0-37); Bilirubin,Total < 0.39 MG/DL (0.2-1.0); Blood Urea Nitrogen 23 MG/DL (7-18); Calcium 9.1 MG/DL (8.5-10.1); Carbon Dioxide 23 MMOL/L (21-32); Estimated Glom Filtration Rate 57 ML/MIN; Glucose 94 MG/DL (74-106); Osmolality,Calculated 278.7 MOS/KG (273-304); Potassium 3.8 MMOL/L (3.5-5.1); Sodium 138 MMOL/L (136-145); Total Protein 7.5 G/DL (6.4-8.3)
[2021-01-03] MEDS: HYDROmorphone 2 MG/1 ML VIAL IV PRN ×2 (19:43→21:51)
[2021-01-03] MEDS: ONDANSETRON 4 MG/2 ML VIAL IV PRN (19:44)
[2021-01-03] MEDS ORDERED: SODIUM CHLORIDE 0.9% 1,000 ML IV SCH (20:00)
[2021-01-03] MEDS: ATORVASTATIN 40 MG TABLET PO SCH (21:50)
[2021-01-03] MEDS: DOCUSATE SODIUM 100 MG CAPSULE PO SCH (21:50)
[2021-01-03] MEDS: GABAPENTIN 100 MG CAPSULE PO SCH (21:50)
[2021-01-03] MEDS: VENLAFAXINE XR 75 MG CAPSULE PO SCH (21:50)
[2021-01-04] MEDS: ONDANSETRON 4 MG/2 ML VIAL IV PRN (01:14)
[2021-01-04] MEDS: HYDROmorphone 2 MG/1 ML VIAL IV PRN ×5 (01:17→13:45)
[2021-01-04] MEDS: LEVOTHYROXINE 100 MCG TABLET PO SCH (05:54)
[2021-01-04] MEDS ORDERED: ceFAZolin 1,000 MG in SYRINGE 1 EACH IV ONE (06:46)
[2021-01-04] MEDS: MULTIVITAMIN (CENTRUM) TABLET PO SCH (08:36)
[2021-01-04] MEDS: HYDROXYUREA 500 MG CAPSULE PO SCH (08:36)
[2021-01-04] MEDS: DOCUSATE SODIUM 100 MG CAPSULE PO SCH ×2 (08:36→21:38)
[2021-01-04] MEDS: FUROSEMIDE 20 MG TABLET PO SCH (08:36)
[2021-01-04] MEDS: FERROUS SULFATE 325 MG TABLET PO SCH (08:36)
[2021-01-04] MEDS: GABAPENTIN 100 MG CAPSULE PO SCH ×2 (08:37→21:38)
[2021-01-04] MEDS: PANTOPRAZOLE 40 MG TABLET PO SCH (08:37)
[2021-01-04] MEDS: ASCORBIC ACID 500 MG TABLET PO SCH (08:37)
[2021-01-04] MEDS ORDERED: ROCURONIUM 50 MG/5 ML VIAL IV ONE (11:36)
[2021-01-04] MEDS ORDERED: LIDOCAINE 2% 5 ML VIAL ONE (11:36)
[2021-01-04] MEDS ORDERED: propofoL 200 MG/20 ML VIAL IV ONE (11:36)
[2021-01-04] MEDS ORDERED: fentaNYL 100 MCG/2 ML VIAL ONE (11:37)
[2021-01-04] MEDS ORDERED: PHENYLEPHRINE 1 MG/10 ML SYRINGE IV ONE (12:40)
[2021-01-04] MEDS ORDERED: SEVOFLURANE 1 UNIT/15 MINUTE INH ONE ×5 (12:40→13:05)
[2021-01-04] MEDS ORDERED: ACETAMINOPHEN 1,000 MG/100 ML VIAL IV ONE (12:41)
[2021-01-04] MEDS ORDERED: MAGNESIUM HYDROXIDE SUSP 30 ML UDCUP PO PRN (13:01)
[2021-01-04] MEDS ORDERED: MORPHINE 4 MG/1 ML VIAL IV PRN ×2 (13:01)
[2021-01-04] MEDS ORDERED: BUPIVACAINE MPF 0.25% 30 ML VIAL ONE (13:02)
[2021-01-04] MEDS ORDERED: HYDROmorphone 2 MG/1 ML VIAL ONE (13:29)
[2021-01-04] MEDS ORDERED: ONDANSETRON 4 MG/2 ML VIAL IV PRN (13:31)
[2021-01-04] MEDS ORDERED: ceFAZolin 1,000 MG in SYRINGE 1 EACH IV SCH (17:00)
[2021-01-04] MEDS: SODIUM CHLORIDE 0.9% 1,000 ML IV SCH ×2 (18:35→21:39)
[2021-01-04] MEDS: ceFAZolin 1,000 MG in SYRINGE 1 EACH IV SCH (21:38)
[2021-01-04] MEDS: ATORVASTATIN 40 MG TABLET PO SCH (21:38)
[2021-01-04] MEDS: VENLAFAXINE XR 75 MG CAPSULE PO SCH (21:38)
[2021-01-05] MEDS: SODIUM CHLORIDE 0.9% 1,000 ML IV SCH (05:09)
[2021-01-05] MEDS: LEVOTHYROXINE 100 MCG TABLET PO SCH ×2 (05:10→06:10)
[2021-01-05] MEDS: ceFAZolin 1,000 MG in SYRINGE 1 EACH IV SCH (05:11)
[2021-01-05 05:33] LABS: Basophils # 0.1 10*3/uL (0.0-0.2); Basophils % 0.8 % (0.0-0.8); Eosinophils # 0.1 10*3/uL (0.0-0.87); Hematocrit 31.5 VOL% (35.7-47.0); Immature Granulocytes % 0.8 %; Immature Granulocytes Absolute 0.08 #; Lymphocytes # 1.5 10*3/uL (1.4-4.0); Lymphocytes % 15.6 % (21.3-54.2); Mean Corpuscular HGB Conc 31.7 GM/DL (32-36); Mean Corpuscular Volume 97.2 FL (87-102); Mean Platelet Volume 10.5 FL (9.6-12.0); Monocytes % 10.7 % (1.7-12.7); Neutrophils % 71.1 % (38.7-73.9); Platelet Count 380 T/CUMM (130-400); Red Blood Count 3.24 MC/CUMM (3.8-5.5); Red Cell Distribution Width 22.8 % (9.3-17.3); White Blood Count 9.7 T/CUMM (4-12)
[2021-01-05 06:01] LABS: Calcium 8.2 MG/DL (8.5-10.1); Osmolality,Calculated 276.5 MOS/KG (273-304); Potassium 3.7 MMOL/L (3.5-5.1)
[2021-01-05 06:02] LABS: Hypochromasia 1+
[2021-01-05 06:03] LABS: Anisocytosis 1+; Microcytosis 1+; Ovalocytes Few; Platelet Estimate Normal
[2021-01-05 07:21] LABS: Albumin 2.6 G/DL (3.4-5.0); Bilirubin,Total 0.7 MG/DL (0.2-1.0); Calcium 8.1 MG/DL (8.5-10.1); Ferritin 235.4 ng/ml (8-252); Free T4 (Free Thyroxine) 0.83 NG/DL (0.76-1.46); Osmolality,Calculated 278.4 MOS/KG (273-304); Potassium 3.9 MMOL/L (3.5-5.1); Risk Ratio 2.49; Thyroid Stimulating Hormone 1.31 uIU/ml (0.358-3.74); Total Protein 6.3 G/DL (6.4-8.3); VLDL CHOLESTEROL 12.8 MG/DL
[2021-01-05] MEDS: GABAPENTIN 100 MG CAPSULE PO SCH (08:50)
[2021-01-05] MEDS: DOCUSATE SODIUM 100 MG CAPSULE PO SCH (08:50)
[2021-01-05] MEDS: PANTOPRAZOLE 40 MG TABLET PO SCH (08:50)
[2021-01-05] MEDS: ASCORBIC ACID 500 MG TABLET PO SCH (08:50)
[2021-01-05] MEDS: HYDROXYUREA 500 MG CAPSULE PO SCH (08:50)
[2021-01-05] MEDS: FERROUS SULFATE 325 MG TABLET PO SCH (08:50)
[2021-01-05] MEDS: MULTIVITAMIN (CENTRUM) TABLET PO SCH (08:51)
[2021-01-05] MEDS: FUROSEMIDE 20 MG TABLET PO SCH (08:51)
[2021-01-05] MEDS ORDERED: APIXABAN 2.5 MG TABLET PO SCH (09:00)
[2021-01-05] MEDS: ONDANSETRON 4 MG/2 ML VIAL IV PRN (10:06)
[2021-01-05 16:50] VITALS: BP 91/73
[2021-01-05] MEDS ORDERED: ONDANSETRON 4 MG TABLET PO ONE (17:39)
[2021-01-05] MEDS ORDERED: APIXABAN 5 MG TABLET PO SCH (21:00)
== END 2021-01-05 18:35 | DRG 482 ==
LOC: EDBD → EDUNIT# → N.ED 16:23 → N.EDINP 18:49 → N.3E 19:50
PROVIDERS: ADMIT Family Medicine; ATTEND Family Medicine

== ENCOUNTER 2022-10-16 16:51 | Observation (INO) ==
[2022-10-16] MEDS ORDERED: SODIUM CHLORIDE 0.9% 1,000 ML IV STA (18:35)
[2022-10-16] MEDS ORDERED: ONDANSETRON 4 MG/2 ML VIAL IV STA (18:35)
[2022-10-16 18:40] LABS: Basophils % 0.5 % (0.0-0.8); Eosinophils % 0.2 % (0.00-10.9); Hematocrit 42.4 VOL% (35.7-47.0); Hemoglobin 12.8 GM/DL (12.0-16.0); Immature Granulocytes % 1.2 %; Immature Granulocytes Absolute 0.07 #; Lymphocytes % 16.3 % (21.3-54.2); Mean Corpuscular HGB Conc 30.2 GM/DL (32-36); Mean Corpuscular Volume 107.1 FL (87-102); Mean Platelet Volume 10.1 FL (9.6-12.0); Monocytes # 0.2 10*3/uL (0.11-0.8); Monocytes % 3.8 % (1.7-12.7); Platelet Count 312 T/CUMM (130-400); Red Blood Count 3.96 MC/CUMM (3.8-5.5); Red Cell Distribution Width 15.6 % (9.3-17.3)
[2022-10-16 18:58] LABS: Albumin 3.5 G/DL (3.4-5.0); Bilirubin,Total 0.6 MG/DL (0.20-1.00); Calcium 9.2 MG/DL (8.5-10.1); Osmolality,Calculated 271.2 MOS/KG (273-304); Potassium 4.8 MMOL/L (3.5-5.1); Total Protein 7.9 G/DL (6.4-8.2)
[2022-10-16 19:12] LABS: Band Neutrophils 18 % (0-10); Lymphocytes 11 % (20-55); Total Cells Counted 100
[2022-10-16 19:13] LABS: Macrocytosis Slight; Platelet Estimate Normal
[2022-10-16 20:01] LABS: Bilirubin,Urine Negative (Negative); Blood, Urine Trace mg/dL (Negative); Glucose,Urine (UA) Negative (Negative); Ketones,Urine Trace mg/dL (Negative); Mucus,Urine Few /LPF (Occasional); Nitrite,Urine Negative (Negative); Protein,Urine Trace mg/dL (Negative); RBC,Urine 12 /HPF (0-4); Squamous Epithelial Cell,Urine Few /HPF (0-10); Urine Appearance Clear (Clear); Urine Color Yellow (Yellow); Urine Specific Gravity 1.025 (1.001-1.035); Urine Urobilinogen 0.2 eU/dL (<2.0); Urine pH 5.5 (4.5-8.0)
[2022-10-16] MEDS ORDERED: cefTRIAXone 1,000 MG in SODIUM CHLORIDE 0.9% 100 ML IV STA (20:07)
[2022-10-16] MEDS ORDERED: ONDANSETRON 4 MG/2 ML VIAL IV PRN (20:21)
[2022-10-16] MEDS ORDERED: MELATONIN 3 MG TABLET PO PRN (20:21)
[2022-10-16] MEDS ORDERED: ACETAMINOPHEN 325 MG TABLET PO PRN (20:21)
[2022-10-16] MEDS ORDERED: SODIUM CHLORIDE 0.9% 1,000 ML IV SCH (20:30)
[2022-10-16] MEDS ORDERED: ATORVASTATIN 40 MG TABLET PO SCH (21:00)
[2022-10-16] MEDS: DEXAMETHASONE 4 MG/1 ML VIAL IV SCH (21:18)
[2022-10-16] MEDS: ASCORBIC ACID 500 MG TABLET PO SCH (21:20)
[2022-10-16] MEDS: APIXABAN 5 MG TABLET PO SCH (21:20)
[2022-10-16] MEDS: DOCUSATE SODIUM 100 MG CAPSULE PO SCH (21:20)
[2022-10-16] MEDS: GABAPENTIN 100 MG CAPSULE PO SCH (21:20)
[2022-10-17 05:17] LABS: Basophils % 0.2 % (0.0-0.8); Hematocrit 33.9 VOL% (35.7-47.0); Hemoglobin 10.4 GM/DL (12.0-16.0); Immature Granulocytes % 1.5 %; Immature Granulocytes Absolute 0.07 #; Lymphocytes # 0.9 10*3/uL (1.4-4.0); Lymphocytes % 20.5 % (21.3-54.2); Mean Corpuscular HGB Conc 30.7 GM/DL (32-36); Mean Corpuscular Volume 106.9 FL (87-102); Monocytes # 0.1 10*3/uL (0.11-0.8); Monocytes % 2.6 % (1.7-12.7); Neutrophils % 75.2 % (38.7-73.9); Platelet Count 285 T/CUMM (130-400); Red Blood Count 3.17 MC/CUMM (3.8-5.5); Red Cell Distribution Width 15.3 % (9.3-17.3); White Blood Count 4.5 T/CUMM (4-12)
[2022-10-17 05:26] LABS: PT Patient Result 11.4 SECS (10.1-12.1)
[2022-10-17 05:51] LABS: Band Neutrophils 4 % (0-10); Calcium 8.7 MG/DL (8.5-10.1); Hypochromia Slight; Lymphocytes 13 % (20-55); Osmolality,Calculated 283.4 MOS/KG (273-304); Ovalocytes Slight; Platelet Estimate Adequate; Potassium 4.1 MMOL/L (3.5-5.1); Thyroid Stimulating Hormone 0.278 uIU/ml (0.358-3.74); Total Cells Counted 100
[2022-10-17] MEDS ORDERED: LEVOTHYROXINE 100 MCG TABLET PO SCH (06:00)
[2022-10-17 07:41] VITALS: BP 95/50
[2022-10-17 07:50] LABS: Folate > 24.00 NG/ML (5.38-24.0); Vitamin B12 601 PG/ML (211-911)
[2022-10-17] MEDS: DOCUSATE SODIUM 100 MG CAPSULE PO SCH (08:41)
[2022-10-17] MEDS: ASCORBIC ACID 500 MG TABLET PO SCH (08:41)
[2022-10-17] MEDS: APIXABAN 5 MG TABLET PO SCH (08:42)
[2022-10-17] MEDS: GABAPENTIN 100 MG CAPSULE PO SCH (08:42)
[2022-10-17] MEDS: DEXAMETHASONE 4 MG/1 ML VIAL IV SCH (08:43)
[2022-10-17] MEDS ORDERED: PANTOPRAZOLE 40 MG TABLET PO SCH (09:00)
[2022-10-17] MEDS ORDERED: ZINC GLUCONATE 50 MG TABLET PO SCH (09:00)
[2022-10-17] MEDS ORDERED: MULTIVITAMIN (OCUVITE) TABLET PO SCH (09:00)
[2022-10-17] MEDS ORDERED: FERROUS SULFATE 325 MG TABLET PO SCH (09:00)
[2022-10-17] MEDS ORDERED: HYDROXYUREA 500 MG CAPSULE PO SCH (09:00)
[2022-10-17] MEDS ORDERED: FUROSEMIDE 20 MG TABLET PO SCH (09:00)
[2022-10-17] MEDS ORDERED: ASPIRIN EC 81 MG TABLET PO SCH (09:00)
[2022-10-17] MEDS ORDERED: CHOLECALCIFEROL 1,000 UNIT TABLET PO SCH (09:00)
[2022-10-17] MEDS ORDERED: cefTRIAXone 1,000 MG in SODIUM CHLORIDE 0.9% 100 ML IV SCH (21:00)
[2022-10-17] MEDS ORDERED: VENLAFAXINE XR 75 MG CAPSULE PO SCH (21:00)
[2022-10-17] MEDS ORDERED: PROPRANOLOL 20 MG TABLET PO SCH (21:00)
== END 2022-10-17 10:41 | disposition home or self-care (01) ==
LOC: N.EDINP 16:51 → N.ED 16:51 → N.2W 21:49
PROVIDERS: ADMIT Internal Medicine; ATTEND Internal Medicine

== ENCOUNTER 2022-10-24 13:05 | Inpatient (IN) ==
[2022-10-24] MEDS ORDERED: ONDANSETRON 4 MG/2 ML VIAL IV ONE (13:45)
[2022-10-24] MEDS ORDERED: MORPHINE 2 MG/1 ML SYRINGE IV ONE ×2 (13:45→15:54)
[2022-10-24 14:01] LABS: Basophils % 0.3 % (0.0-0.8); Eosinophils % 0.3 % (0.00-10.9); Hematocrit 40.1 VOL% (35.7-47.0); Hemoglobin 12.6 GM/DL (12.0-16.0); Immature Granulocytes % 2.2 %; Immature Granulocytes Absolute 0.29 #; Lymphocytes # 3.6 10*3/uL (1.4-4.0); Lymphocytes % 27.5 % (21.3-54.2); Mean Corpuscular HGB Conc 31.4 GM/DL (32-36); Mean Corpuscular Volume 103.4 FL (87-102); Mean Platelet Volume 10.2 FL (9.6-12.0); Monocytes % 7.4 % (1.7-12.7); Neutrophils % 62.3 % (38.7-73.9); Platelet Count 474 T/CUMM (130-400); Red Blood Count 3.88 MC/CUMM (3.8-5.5); Red Cell Distribution Width 15.6 % (9.3-17.3)
[2022-10-24 14:09] LABS: PT Patient Result 11.4 SECS (10.1-12.1)
[2022-10-24 14:19] LABS: Albumin 3.4 G/DL (3.4-5.0); Bilirubin,Total 0.5 MG/DL (0.20-1.00); Calcium 9.4 MG/DL (8.5-10.1); Osmolality,Calculated 275.8 MOS/KG (273-304); Potassium 3.5 MMOL/L (3.5-5.1); Total Protein 7.4 G/DL (6.4-8.2)
[2022-10-24] MEDS ORDERED: ONDANSETRON 4 MG/2 ML VIAL IV PRN (18:06)
[2022-10-24] MEDS ORDERED: ALBUTEROL 2.5 MG/3 ML NEB RESP TX PRN (18:06)
[2022-10-24] MEDS ORDERED: DOCUSATE SODIUM 100 MG CAPSULE PO PRN (18:06)
[2022-10-24] MEDS ORDERED: hydrALAZINE 20 MG/1 ML VIAL IV PRN (18:06)
[2022-10-24] MEDS ORDERED: ACETAMINOPHEN 325 MG TABLET PO PRN (18:06)
[2022-10-24] MEDS ORDERED: MORPHINE 2 MG/1 ML SYRINGE IV PRN (18:16)
[2022-10-24] MEDS ORDERED: LACTATED RINGERS 1,000 ML IV SCH (18:30)
[2022-10-24] MEDS: LACTATED RINGERS 1,000 ML IV SCH (20:00)
[2022-10-24] MEDS: GABAPENTIN 100 MG CAPSULE PO SCH (22:01)
[2022-10-24] MEDS: VENLAFAXINE XR 75 MG CAPSULE PO SCH (22:01)
[2022-10-24] MEDS: ATORVASTATIN 40 MG TABLET PO SCH (22:02)
[2022-10-24] MEDS: PROPRANOLOL 20 MG TABLET PO SCH (22:02)
[2022-10-25 04:45] LABS: Basophils % 0.3 % (0.0-0.8); Eosinophils # 0.1 10*3/uL (0.0-0.87); Eosinophils % 0.8 % (0.00-10.9); Hematocrit 35.9 VOL% (35.7-47.0); Hemoglobin 11.3 GM/DL (12.0-16.0); Immature Granulocytes % 2.7 %; Immature Granulocytes Absolute 0.32 #; Lymphocytes # 3.5 10*3/uL (1.4-4.0); Lymphocytes % 29.9 % (21.3-54.2); Mean Corpuscular HGB Conc 31.5 GM/DL (32-36); Mean Platelet Volume 10.3 FL (9.6-12.0); Monocytes # 0.8 10*3/uL (0.11-0.8); Monocytes % 6.8 % (1.7-12.7); Neutrophils % 59.5 % (38.7-73.9); Platelet Count 408 T/CUMM (130-400); Red Blood Count 3.42 MC/CUMM (3.8-5.5); Red Cell Distribution Width 15.9 % (9.3-17.3); White Blood Count 11.8 T/CUMM (4-12)
[2022-10-25] MEDS ORDERED: KETOROLAC 15 MG/1 ML VIAL IV ONE (04:45)
[2022-10-25] MEDS ORDERED: SODIUM CHLORIDE 0.9% 500 ML IV ONE (04:45)
[2022-10-25 05:33] LABS: Eosinophils 1 % (0-10); Hypochromia Slight; Lymphocytes 23 % (20-55); Platelet Estimate Adequate; Total Cells Counted 100
[2022-10-25 05:37] LABS: Calcium 9.1 MG/DL (8.5-10.1); Osmolality,Calculated 278.7 MOS/KG (273-304); Potassium 4.4 MMOL/L (3.5-5.1); Risk Ratio 3.26; Thyroid Stimulating Hormone 3.99 uIU/ml (0.358-3.74); VLDL Cholesterol 46.6 MG/DL
[2022-10-25] MEDS ORDERED: ceFAZolin 2,000 MG/50 ML DUPLEX IV ONE (07:57)
[2022-10-25] MEDS: LEVOTHYROXINE 100 MCG TABLET PO SCH (08:06)
[2022-10-25] MEDS: MULTIVITAMIN (CENTRUM) TABLET PO SCH (08:07)
[2022-10-25] MEDS: FERROUS SULFATE 325 MG TABLET PO SCH (08:07)
[2022-10-25] MEDS: ASCORBIC ACID 500 MG TABLET PO SCH (08:08)
[2022-10-25] MEDS: PROPRANOLOL 20 MG TABLET PO SCH ×3 (08:08→20:49)
[2022-10-25] MEDS: PANTOPRAZOLE 40 MG TABLET PO SCH (08:08)
[2022-10-25] MEDS: GABAPENTIN 100 MG CAPSULE PO SCH ×2 (08:08→20:48)
[2022-10-25] MEDS ORDERED: LACTATED RINGERS 1,000 ML IV SCH (10:30)
[2022-10-25] MEDS: LACTATED RINGERS 1,000 ML IV SCH ×2 (11:12→20:58)
[2022-10-25] MEDS ORDERED: ROCURONIUM 50 MG/5 ML VIAL IV ONE (11:31)
[2022-10-25] MEDS ORDERED: propofoL 200 MG/20 ML VIAL IV ONE (11:31)
[2022-10-25] MEDS ORDERED: SEVOFLURANE 1 UNIT/15 MINUTE INH ONE ×6 (11:31→12:53)
[2022-10-25] MEDS ORDERED: fentaNYL 100 MCG/2 ML VIAL ONE (11:31)
[2022-10-25] MEDS ORDERED: LIDOCAINE 2% 5 ML VIAL ONE (11:31)
[2022-10-25] MEDS ORDERED: KETAMINE 500 MG/10 ML VIAL ONE (11:32)
[2022-10-25] MEDS ORDERED: GLYCOPYRROLATE 0.4 MG/2 ML VIAL ONE (12:28)
[2022-10-25] MEDS ORDERED: ONDANSETRON 4 MG/2 ML VIAL ONE (12:32)
[2022-10-25] MEDS ORDERED: LACTATED RINGERS 1,000 ML IV ONE (12:51)
[2022-10-25] MEDS ORDERED: LACTULOSE 20 GM/30 ML UDCUP PO PRN (12:59)
[2022-10-25] MEDS ORDERED: BISACODYL 10 MG SUPP RECTAL PRN (12:59)
[2022-10-25] MEDS ORDERED: diphenhydrAMINE CAP 25 MG CAPSULE PO PRN (12:59)
[2022-10-25] MEDS ORDERED: MAGNESIUM HYDROXIDE SUSP 30 ML UDCUP PO PRN (12:59)
[2022-10-25] MEDS ORDERED: PHENYLEPHRINE 1 MG/10 ML SYRINGE IV ONE ×2 (13:00)
[2022-10-25] MEDS ORDERED: MORPHINE 2 MG/1 ML SYRINGE IV PRN ×2 (13:04→13:12)
[2022-10-25] MEDS ORDERED: MEPERIDINE 50 MG/1 ML VIAL ONE (13:22)
[2022-10-25] MEDS ORDERED: ONDANSETRON 4 MG/2 ML VIAL IV PRN (13:27)
[2022-10-25] MEDS ORDERED: MEPERIDINE 25 MG/1 ML VIAL IV PRN (13:27)
[2022-10-25] MEDS ORDERED: ROPIVACAINE 0.5% 30 ML VIAL ONE (13:43)
[2022-10-25] MEDS ORDERED: DEXAMETHASONE 4 MG/1 ML VIAL ONE (13:43)
[2022-10-25] MEDS ORDERED: LIDOCAINE 1% 5 ML VIAL ONE (13:43)
[2022-10-25] MEDS: ATORVASTATIN 40 MG TABLET PO SCH (20:48)
[2022-10-25] MEDS: VENLAFAXINE XR 75 MG CAPSULE PO SCH (20:48)
[2022-10-26] MEDS: FONDAPARINUX 2.5 MG/0.5 ML SYRINGE SUBCUT SCH (05:56)
[2022-10-26] MEDS: LEVOTHYROXINE 100 MCG TABLET PO SCH (05:56)
[2022-10-26 06:47] LABS: Calcium 8.8 MG/DL (8.5-10.1); Osmolality,Calculated 282.3 MOS/KG (273-304); Potassium 4.4 MMOL/L (3.5-5.1)
[2022-10-26 07:35] LABS: Basophils % 0.3 % (0.0-0.8); Eosinophils % 0.3 % (0.00-10.9); Hematocrit 26.7 VOL% (35.7-47.0); Immature Granulocytes % 1.5 %; Immature Granulocytes Absolute 0.18 #; Lymphocytes # 1.9 10*3/uL (1.4-4.0); Mean Corpuscular HGB Conc 30.7 GM/DL (32-36); Mean Platelet Volume 10.4 FL (9.6-12.0); Monocytes % 8.7 % (1.7-12.7); Neutrophils % 73.2 % (38.7-73.9); Red Cell Distribution Width 15.6 % (9.3-17.3); White Blood Count 11.7 T/CUMM (4-12)
[2022-10-26 07:38] LABS: Hemoglobin 8.2 GM/DL (12.0-16.0); Red Blood Count 2.52 MC/CUMM (3.8-5.5)
[2022-10-26 07:39] LABS: Platelet Count 274 T/CUMM (130-400)
[2022-10-26 08:34] LABS: Free T4 (Free Thyroxine) 1.24 NG/DL (0.76-1.46)
[2022-10-26] MEDS: PANTOPRAZOLE 40 MG TABLET PO SCH (08:52)
[2022-10-26] MEDS: ASCORBIC ACID 500 MG TABLET PO SCH (08:52)
[2022-10-26] MEDS: GABAPENTIN 100 MG CAPSULE PO SCH ×2 (08:52→22:01)
[2022-10-26] MEDS: MULTIVITAMIN (CENTRUM) TABLET PO SCH (08:53)
[2022-10-26] MEDS: PROPRANOLOL 20 MG TABLET PO SCH ×3 (08:53→22:02)
[2022-10-26] MEDS: FERROUS SULFATE 325 MG TABLET PO SCH (08:53)
[2022-10-26] MEDS: ATORVASTATIN 40 MG TABLET PO SCH (22:02)
[2022-10-26] MEDS: VENLAFAXINE XR 75 MG CAPSULE PO SCH (22:02)
[2022-10-27 05:55] LABS: Basophils # 0.1 10*3/uL (0.0-0.2); Basophils % 0.5 % (0.0-0.8); Eosinophils # 0.2 10*3/uL (0.0-0.87); Eosinophils % 1.5 % (0.00-10.9); Hematocrit 26.5 VOL% (35.7-47.0); Hemoglobin 7.8 GM/DL (12.0-16.0); Immature Granulocytes % 1.5 %; Immature Granulocytes Absolute 0.16 #; Lymphocytes # 2.5 10*3/uL (1.4-4.0); Lymphocytes % 23.4 % (21.3-54.2); Mean Corpuscular HGB Conc 29.4 GM/DL (32-36); Mean Corpuscular Volume 110.4 FL (87-102); Mean Platelet Volume 10.7 FL (9.6-12.0); Monocytes # 0.9 10*3/uL (0.11-0.8); Monocytes % 8.3 % (1.7-12.7); Neutrophils % 64.8 % (38.7-73.9); Platelet Count 283 T/CUMM (130-400); Red Cell Distribution Width 15.5 % (9.3-17.3); White Blood Count 10.8 T/CUMM (4-12)
[2022-10-27 06:08] LABS: Calcium 8.6 MG/DL (8.5-10.1); Osmolality,Calculated 284.1 MOS/KG (273-304); Potassium 3.9 MMOL/L (3.5-5.1)
[2022-10-27] MEDS: FONDAPARINUX 2.5 MG/0.5 ML SYRINGE SUBCUT SCH (06:12)
[2022-10-27] MEDS: LEVOTHYROXINE 100 MCG TABLET PO SCH (06:12)
[2022-10-27 08:03] VITALS: BP 102/41
[2022-10-27] MEDS: GABAPENTIN 100 MG CAPSULE PO SCH (09:30)
[2022-10-27] MEDS: MULTIVITAMIN (CENTRUM) TABLET PO SCH (09:30)
[2022-10-27] MEDS: PANTOPRAZOLE 40 MG TABLET PO SCH (09:30)
[2022-10-27] MEDS: PROPRANOLOL 20 MG TABLET PO SCH (09:30)
[2022-10-27] MEDS: FERROUS SULFATE 325 MG TABLET PO SCH (09:30)
[2022-10-27] MEDS: ASCORBIC ACID 500 MG TABLET PO SCH (09:30)
== END 2022-10-27 11:06 | DRG 482 ==
LOC: EDUNIT# → EDBD → N.ED 13:05 → N.EDINP 18:06 → SUATTDRO 18:06 → N.3E 20:04
PROVIDERS: ADMIT Internal Medicine Geriatric Medicine; ATTEND Internal Medicine